=== PATIENT | female | born 1990 | race Caucasian/White ===

== ENCOUNTER → 2019-06-12 12:39 | Outpatient (CLI) | payer BC, SELFPAY ==
[2019-06-12 15:15] LABS: HCG,Quantitative 0 mIU/mL; Thyroid Stimulating Hormone 2.38 uIU/ml (0.358-3.740)
[2019-06-13 09:49] LABS: FSH 8.4 mIU/mL (.); LH 7.4 mIU/mL (.); Prolactin 47.2 ng/mL (4.8-23.3)
== END ==
PROVIDERS: Visit Provider Obstetrics & Gynecology
DX: N92.6 Irregular menstruation, unspecified (principal); N64.52 Nipple discharge; Z32.00 Encounter for pregnancy test, result unknown
CPT/HCPCS: 36415; 83001; 83002; 84146; 84443; 84702